=== PATIENT | female | born 1985 | race African-American/Black ===

== ENCOUNTER 2021-11-09 08:25 | Emergency (ER) | payer MEDICAID, OTHER ==
[~2021-11-09] VITALS: Ht 167.6 cm; Wt 87.5 kg
[2021-11-09 09:19] LABS: Basophils # (auto) 0.1 10 ^3/uL (0-0.2); Eosinophils # (auto) 0.1 10 ^3/uL (0-0.8); Eosinophils % (auto) 1.4 % (0.0-7.0); Hematocrit 40.6 % (36.0-46.0); Hemoglobin 13.5 g/dL (12.2-16.2); Lymphocytes # (auto) 1.4 10 ^3/uL (0.4-5.4); Lymphocytes % (auto) 19.1 % (10.0-50.0); Mean Corpuscular Hemoglobin 26.2 pg (28.0-32.0); Mean Corpuscular Hgb Conc. 33.2 g/dL (32.0-36.0); Monocytes # (auto) 0.6 10 ^3/uL (0-1.3); Neutrophils # (auto) 5.2 10 ^3/uL (1.6-8.6); Neutrophils % (auto) 70.5 % (37.0-80.0); Nucleated Red Blood Cells % 0.1 %; Red Blood Cells 5.14 10^6/uL (4.0-5.20); Red Cell Distribution Width 15.3 % (11.8-14.3); White Blood Cell 7.4 10^3/uL (4.4-10.8)
[2021-11-09 09:43] LABS: Calcium 9.1 mg/dL (8.5-10.1); Potassium 3.7 mmol/L (3.5-5.1)
[2021-11-09 09:49] LABS: BUN/Creatinine Ratio 13.2; Bilirubin, Total 0.2 mg/dL (0.2-1.0)
[2021-11-09 10:03] LABS: Urine Bacteria FEW /hpf (None Seen); Urine Blood Negative /uL (Negative); Urine Specific Gravity 1.018 (1.001-1.035); Urine WBC 2 /hpf (0 - 5)
[2021-11-09 11:19] VITALS: BP 121/78
== END 2021-11-09 13:20 | disposition home or self-care (01) ==
LOC: ER 08:25
DX: O26.891 Other specified pregnancy related conditions, first trimester (principal); R25.2 Cramp and spasm; R10.2 Pelvic and perineal pain; Z3A.09 9 weeks gestation of pregnancy
CPT/HCPCS: 36415; 76801; 80053; 81001; 84702; 85025

== ENCOUNTER 2024-08-13 14:46 | Emergency (ER) | payer MEDICAID ==
[~2024-08-13] VITALS: Ht 170.2 cm; Wt 93.6 kg
[2024-08-13 15:08] LABS: Urine Bacteria None Seen /hpf (None Seen)
[2024-08-13 15:20] LABS: Urine Blood 3+ /uL (Negative); Urine Clarity Clear (Clear); Urine Color Light-Yellow (Yellow); Urine Protein, UAD Negative (Negative); Urine Specific Gravity 1.014 (1.001-1.035); Urine Urobilinogen Normal (Negative); Urine WBC 2 /hpf (0 - 5); Urine pH 6.5 (5.0-9.0)
[2024-08-13] MEDS ORDERED: CYCL-837 PO (16:50)
[2024-08-13 17:21] VITALS: BP 97/66; PULSE 74; RESP 14; O2SAT 99
== END 2024-08-13 18:08 | disposition home or self-care (01) ==
LOC: ER 14:46
DX: S16.1XXA Strain of muscle, fascia and tendon at neck level, initial encounter (principal); V49.9XXA Car occupant (driver) (passenger) injured in unspecified traffic accident, initial encounter; Y93.89 Activity, other specified; Y92.488 Other paved roadways as the place of occurrence of the external cause; Y99.8 Other external cause status
CPT/HCPCS: 72040; 81001

== ENCOUNTER 2025-02-09 09:54 | Emergency (ER) | payer MEDICAID ==
[~2025-02-09] VITALS: Ht 167.6 cm; Wt 89.5 kg
[~2025-02-09 09:54] MED LIST: CYCL-837 PO
[2025-02-09 09:59] VITALS: BP 95/65; PULSE 100; RESP 20; TEMP 97.9; O2SAT 96
--- NOTE | 2025-02-09 10:36 | ED.PDOC ---
History of Present Illness HPI Comments 39 y/o F presents with son for c/o nonradiating, mid-abdominal and back pain, nausea, and soft stools production for 1x day, today. Patient reports coming to the ED, due to her and her son developing similar symptoms around the same timeframe and concerns for possible C. Diff. 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 She denies any intolerance to food or liquids, diarrhea, vomiting, urinary symptoms, fever, chills, or other associated symptoms at this time. 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 OPERATOR History Family History Family History: Reviewed,noncontributory to illness Social History Smoker: Non-Smoker Alcohol: Denies ETOH Use Drugs: Denies Drug Use Lives In: Home Constitutional: denies: chills, diaphoresis, fatigue, fever, malaise, sweats, weakness, others EENTM: denies: blurred vision, double vision, ear bleeding, ear discharge, ear drainage, ear pain, ear ringing, eye pain, eye redness, hearing loss, mouth pain, mouth swelling, nasal discharge, nose bleeding, nose congestion, nose pain, photophobia, tearing, throat pain, throat swelling, voice changes, others Respiratory: denies: cough, hemoptysis, orthopnea, SOB at rest, shortness of breath, SOB with excertion, stridor, wheezing, others Cardiovascular: denies: chest pain, dizzy spells, diaphoresis, Dyspnea on exertion, edema, irregular heart beat, left arm pain, lightheadedness, palpitations, PND, syncope, others Gastrointestinal: reports: abdominal pain, nausea, others (loose stools ); denies: abdomen distended, blood streaked bowels, constipated, diarrhea, dysphagia, difficulty swallowing, hematemesis, melena, poor appetite, poor fluid intake, rectal bleeding, rectal pain, vomiting Genitourinary: denies: abnormal vagina bleeding, burning, dyspareunia, dysuria, flank pain, frequency, hematuria, incontinence, pain, , vagina discharge, urgency, others Neurological: denies: dizziness, fainting, headache, left sided numbness, left sided weakness, numbness, paresthesia, pre-existing deficit, right sided numbness, right sided weakness, seizure, speech problems, tingling, tremors, weakness, others Musculoskeletal: reports: back pain; denies: gout, joint pain, joint swelling, muscle pain, muscle stiffness, neck pain, others Integumetry: denies: bruises, change in color, change in hair/nails, dryness, laceration, lesions, lumps, rash, wounds, others Allergic/Immunocompromised: denies: Difficulty Healing, Frequent Infections, Hives, Itching, others Hematologic/Lymphatic: denies: anemia, blood clots, easy bleeding, easy bruising, swollen glands, others Endocrine: denies: excessive hunger, excessive sweating, excessive thirst, excessive urination, flushing, intolerance to cold, intolerance to heat, unexplained weight gain, unexplained weight loss, others Psychiatric: denies: anxiety, bipolar disorder, depression, hopeless, panic disorder, schizophrenia, sleepless, suicidal, others All Other Systems: Reviewed and Negative Physical Exam General Appearance: No Apparent Distress HEENT: Normal ENT Inspection, Pharynx Normal, TMs Normal Neck: Full Range of Motion, Non-Tender, Normal, Normal Inspection Respiratory: Chest Non-Tender, Lungs Clear, No Accessory Muscle Use, No Respir atory Distress, Normal Breath Sounds Cardiovascular: No Edema, No JVD, No Murmur, No Gallop, Normal Peripheral Pulses, Regular Rate/Rhythm Breast Exam: Deferred Gastrointestinal: No Organomegaly, Non Tender, No Pulsatile Mass, Normal Bowel Sounds, Soft Genitalia: Deferred Pelvic: Deferred Rectal: Deferred Extremities: No calf tenderness, Normal capillary refill, Normal inspection, Normal range of motion, Non-tender, No pedal edema Musculoskeletal : Apperance: Normal Neurologic: Alert, tar leveler II-XII nml as Tested, No Motor Deficits, Normal Affect, Normal Mood, No Sensory Deficits Cerebellar Function: Normal Reflexes: Normal Skin: Dry, Normal Color, Warm Lymphatic: No Adenopathy Was a procedure done? Was a procedure done?: No Differential Dx Considerations may include: viral syndrome, spoiled food, , gastritis, gastroenteritis, C. Diff. exposure, among others X-Ray, Labs, Meds, VS Vital Signs Date Time Temp Pulse Resp B/P (MAP) Pulse Ox O2 Delivery O2 Flow Rate FiO2 02/09/25 09:59 97.9 100 20 95/65 (75) 96 97.9 The patient was being discharged with a diagnosis of viral syndrome The patient will return to the emergency department's condition worsens. We tried to re-evaluate the patient before possible discharged but it seems that the patient was eloped from the department's Time of 1ST Reevaluation: 11:00 Reevaluation 1ST: Unchanged Patient Education/Counseling: Diagnosis, Treatment, Prognosis, Need For Follow Up Family Education/Counseling: No Family Present Departure 1 Departure Time of Disposition: 15:02 Impression: Primary Impression: Viral syndrome Disposition: 03 RETIREMENT FACILITY Condition: Fair Critical Care Note Critical Care Time?: No Stability Stability form required: No Heart Score Heart Score: Heart Score Response (Comments) Value History N/A 0 EKG N/A 0 Age N/A 0 Risk Factors N/A 0 Troponin N/A 0 Total 0 I personally scribed for ILA GARDINER MD ([email or web address]) on 02/09/25 at 10:36. Electronically submitted by Dorian Rodriguez ([email or web address]). I personally scribed for ILA GARDINER MD ([email or web address]) on 02/09/25 at 10:51. Electronically submitted by Dorian Rodriguez ([email or web address]). ILA GARDINER MD Feb 09, 2025 10:36
== END 2025-02-09 15:15 | disposition home or self-care (01) ==
LOC: ER 09:54
DX: B34.9 Viral infection, unspecified (principal); Z79.899 Other long term (current) drug therapy; Z98.890 Other specified postprocedural states

== ENCOUNTER 2025-07-11 01:08 | Emergency (ER) | payer MEDICAID ==
[~2025-07-11] VITALS: Ht 167.6 cm; Wt 88.0 kg
[2025-07-11 01:13] VITALS: BP 103/69; RESP 18; TEMP 97.8; O2SAT 98
[2025-07-11 01:16] VITALS: PULSE 67
[2025-07-11] MEDS ORDERED: HYDROcodone-ACET 10/325MG TAB PO ONE (01:45)
[2025-07-11 02:00] LABS: Hematocrit 39.2 % (36.0-46.0); Hemoglobin 13.1 g/dL (12.2-16.2); Mean Corpuscular Hemoglobin 26.4 pg (28.0-32.0); Mean Corpuscular Volume 79.1 fL (80.0-100.0); Nucleated Red Blood Cells % 0.0 %
[2025-07-11 02:19] LABS: Alanine Aminotransferase 10 U/L (7-40); Albumin 3.9 g/dL (3.2-4.8); Alkaline Phosphatase 108 U/L (46-116); Anion Gap 8 (5-15); BUN/Creatinine Ratio 12.8 (10.0-20.0); Blood Urea Nitrogen 10 mg/dL (9-23); Calcium 9.1 mg/dL (8.7-10.4); Carbon Dioxide 25 mmol/L (20-31); Chloride 107 mmol/L (98-107); Glucose 102 mg/dL (74-106); Magnesium 1.8 mg/dL (1.6-2.6); Potassium 3.8 mmol/L (3.5-5.1); Sodium 140 mmol/L (136-145); Total Protein 6.9 g/dL (5.7-8.2)
[2025-07-11 02:20] LABS: Bilirubin, Total 0.3 mg/dL (0.2-1.0)
[2025-07-11] MEDS ORDERED: IBUP-1455 PO (02:51)
[2025-07-11] MEDS ORDERED: ACET500T58 PO (02:51)
--- NOTE | 2025-07-11 02:51 | ED.PDOC ---
History of Present Illness HPI Comments This patient is a pleasant but morbidly obese 39-year-old female who arrives to the ED today with complaints of generalized chest pain concerns, bilateral upper extremity and bilateral lower extremity numbness and tingling as well as low back pain issues. Patient states the symptoms came on a few days ago and has been relatively unrelenting and have even worsened today prompting her to come to the facility. Patient denies any history of cardiac or low back concerns. Patient denies any fever nausea or vomiting. Vital signs were stable at arrival. 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 AUTOMOTIVE LIGHT MECHANIC History Family History Family History: Reviewed,noncontributory to illness Social History Smoker: Non-Smoker Alcohol: Denies ETOH Use Drugs: Denies Drug Use Lives In: Home Constitutional: reports: weakness; denies: chills, diaphoresis, fatigue, fever, malaise, sweats, others EENTM: denies: blurred vision, double vision, ear bleeding, ear discharge, ear drainage, ear pain, ear ringing, eye pain, eye redness, hearing loss, mouth pain, mouth swelling, nasal discharge, nose bleeding, nose congestion, nose pain, photophobia, tearing, throat pain, throat swelling, voice changes, others Respiratory: denies: cough, hemoptysis, orthopnea, SOB at rest, shortness of breath, SOB with excertion, stridor, wheezing, others Cardiovascular: reports: chest pain; denies: dizzy spells, diaphoresis, Dyspnea on exertion, edema, irregular heart beat, left arm pain, lightheadedness, palpitations, PND, syncope, others Gastrointestinal: denies: abdomen distended, abdominal pain, blood streaked bowels, constipated, diarrhea, dysphagia, difficulty swallowing, hematemesis, melena, nausea, poor appetite, poor fluid intake, rectal bleeding, rectal pain, vomiting, others Genitourinary: denies: abnormal vagina bleeding, burning, dyspareunia, dysuria, flank pain, frequency, hematuria, incontinence, pain, , vagina discharge, urgency, others Neurological: denies: dizziness, fainting, headache, left sided numbness, left sided weakness, numbness, paresthesia, pre-existing deficit, right sided numbness, right sided weakness, seizure, speech problems, tingling, tremors, wea kness, others Musculoskeletal: reports: back pain, others (Global pain with upper and lower extremity tingling and numbness.); denies: gout, joint pain, joint swelling, muscle pain, muscle stiffness, neck pain Integumetry: denies: bruises, change in color, change in hair/nails, dryness, laceration, lesions, lumps, rash, wounds, others Allergic/Immunocompromised: denies: Difficulty Healing, Frequent Infections, Hives, Itching, others Hematologic/Lymphatic: denies: anemia, blood clots, easy bleeding, easy b ruising, swollen glands, others Endocrine: denies: excessive hunger, excessive sweating, excessive thirst, excessive urination, flushing, intolerance to cold, intolerance to heat, unexplained weight gain, unexplained weight loss, others Psychiatric: denies: anxiety, bipolar disorder, depression, hopeless, panic disorder, schizophrenia, sleepless, suicidal, others Physical Exam General Appearance: Moderate Distress ([id number] distress due to patient's complaints.), Normal HEENT: Normal ENT Inspection, Pharynx Normal, TMs Normal Neck: Full Range of Motion, Non-Tender, Normal, Normal Inspection Respiratory: Chest Non-Tender, Lungs Clear, No Accessory Muscle Use, No Respiratory Distress, Normal Breath Sounds Cardiovascular: No Edema, No JVD, No Murmur, No Gallop, Normal Peripheral Pulses, Regular Rate/Rhythm Breast Exam: Deferred Gastrointestinal: No Organomegaly, Non Tender, No Pulsatile Mass, Normal Bowel Sounds, Soft Genitalia: Deferred Pelvic: Deferred Rectal: Deferred Extremities: Other (Unremarkable upper and lower bilateral extremity evaluation. No signs of trauma. Strength is equal.) Musculoskeletal : Location: Bilateral Extremity Location: Back (Diffuse bilateral superior lumbar tenderness to palpation throughout. Difficult to assess due to body habitus. No step-offs noted. Patient denies any saddle paresthesia. Distal neurovascularly intact.) Apperance: Normal Neurologic: Alert, No Motor Deficits, Normal Affect, Normal Mood, No Sensory Deficits Cerebellar Function: NOT DONE Reflexes: NOT DONE Skin: Dry, Normal Color, Warm Lymphatic: No Adenopathy Was a procedure done? Was a procedure done?: No Differential Dx Considerations may include: Acute coronary syndrome, electrolyte abnormality, sepsis, urinary tract infection, degenerative disc disease of the lumbar spine X-Ray, Labs, Meds, VS Vital Signs Date Time Temp Pulse Resp B/P (MAP) Pulse Ox O2 Delivery O2 Flow Rate FiO2 07/11/25 01:16 67 07/11/25 01:13 97.8 75 18 103/69 98 97.8 Lab Test 07/11/25 01:40 Range/Units White Blood Count 7.2 4.4-10.8 10^3/uL Red Blood Count 4.95 4.0-5.20 10^6/uL Hemoglobin 13.1 12.2-16.2 g/dL Hematocrit 39.2 36.0-46.0 % Mean Corpuscular Volume 79.1 L 80.0-100.0 fL Mean Corpuscular Hemoglobin 26.4 L 28.0-32.0 pg Mean Corpuscular Hemoglobin Concent 33.4 32.0-36.0 g/dL Red Cell Distribution Width 14.7 H 11.8-14.3 % Platelet Count 290 140-450 10^3/uL Mean Platelet Volume 8.3 6.9-10.8 fL Neutrophils (%) (Auto) 57.9 37.0-80.0 % Lymphocytes (%) (Auto) 32.1 10.0-50.0 % Monocytes (%) (Auto) 6.3 0.0-12.0 % Eosinophils (%) (Auto) 2.7 0.0-7.0 % Basophils (%) (Auto) 1.0 0.0-2.0 % Neutrophils # (Auto) 4.2 1.6-8.6 10 ^3/uL Lymphocytes # (Auto) 2.3 0.4-5.4 10 ^3/uL Monocytes # (Auto) 0.5 0-1.3 10 ^3/uL Eosinophils # (Auto) 0.2 0-0.8 10 ^3/uL Basophils # (Auto) 0.1 0-0.2 10 ^3/uL Nucleated Red Blood Cells 0.0 % Sodium Level 140 136-145 mmol/L Potassium Level 3.8 3.5-5.1 mmol/L Chloride Level 107 98-107 mmol/L Carbon Dioxide Level 25 20-31 mmol/L Anion Gap 8 5-15 Blood Urea Nitrogen 10 9-23 mg/dL Creatinine 0.78 0.550-1.02 mg/dL Glomerular Filtration Rate Calc 99 >90 mL/min BUN/Creatinine Ratio 12.8 10.0-20.0 Serum Glucose 102 74-106 mg/dL Calcium Level 9.1 8.7-10.4 mg/dL Magnesium Level 1.8 1.6-2.6 mg/dL Total Bilirubin 0.3 0.2-1.0 mg/dL Aspartate Amino Transferase (AST) 13 13-40 U/L Alanine Aminotransferase (ALT) 10 7-40 U/L Alkaline Phosphatase 108 46-116 U/L Troponin I High Sensitivity < 3 L </=34 ng/L Total Protein 6.9 5.7-8.2 g/dL Albumin 3.9 3.2-4.8 g/dL Thyroid Stimulating Hormone (TSH) 2.81 0.55-4.78 uIU/mL X-Ray, Labs, Meds, VS Comment Several studies were pending at time of this note. Laboratories that had returned were unremarkable for any systemic concerns. EKG revealed a sinus rhythm with a rate of 67. TX interval 178 and QT interval of three seven. Normal EKG. Patient states that she has had some anxiety recently and that in turn could explain the culprit for the patient's complaints. Patient care will be transferred to Dr. Lopez for evaluation of laboratories and imaging when returned. Time of 1ST Reevaluation: 02:47 Reevaluation 1ST: Improved Consultation: PCP Patient Education/Counseling: Diagnosis, Treatment Family Education/Counseling: Diagnosis, Treatment SEPSIS Sepsis Screen Date sepsis recognized/suspect: Jul 11, 2025 Time Sepsis recognized/suspect: 012 Recent Procedure: No On Antibiotic Therapy: No Respiratory Rate >20: No Heart Rate >90: No Temp<36 C (96.8 F) or >38.3 C: No SBP <90 or MAP <65 mmHG: No New Acute Mental Status Change: No Is the patient on CPAP, BIPAP,: No Physician Orders Urinalysis (07/11/25 01:31) Electrocardigram (07/11/25 01:31) Lumbar Spine 3 View (07/11/25 01:31) Vital Signs Date Time Temp Pulse Resp B/P (MAP) Pulse Ox O2 Delivery O2 Flow Rate FiO2 07/11/25 01:16 67 07/11/25 01:13 97.8 75 18 103/69 98 97.8 Laboratory Tests Test 07/11/25 01:40 White Blood Count 7.2 10^3/uL (4.4-10.8) Departure 1 Departure Time of Disposition: 02:49 Impression: Primary Impression: Anxiety Additional Impressions: Chest pain Low back pain Disposition: HOME / SELF CARE / HOMELESS Condition: Stable Additional Instructions: Advised patient utilize medication as needed and additionally, patient should follow up with the primary care provider for mental health referral and evaluation as that may aid her during this stressful time. e-Prescriptions Acetaminophen (Acetaminophen) 500 Mg Tab 500 MG PO Q4HP PRN, #30 TAB Prov: MALKA MOE PAC 07/11/25 Ibuprofen Micronized (Ibuprofen) 800 Mg Tab 800 MG PO Q8HP PRN, #20 TAB Prov: MALKA MOE PAC 07/11/25 Discharged With: Self, Friend Critical Care Note Critical Care Time?: No Stability Stability form required: No Heart Score Heart Score: Heart Score Response (Comments) Value History Slightly Suspicious 0 EKG Normal 0 Age <45 0 Risk Factors No known risk factors 0 Troponin Normal limit 0 Total 0 MALKA MOE PAC Jul 11, 2025 02:51
--- NOTE | 2025-07-11 02:54 | ECG ---
[facility] Test Date: 2025-07-11 Test Time: 01:16:02 Pat Name: DARREN CAMEJO Department: [facility] ED Patient ID: [id number] Room: Gender: F E Commerce Director: JOSH : 1985 Requested By: MALKA MOE Order Number: [id number] Reading MD: Measurements Intervals [place] Rate: 67 P: 53 UT: 178 QRS: 60 QRSD: 81 T: 56 QT: 387 QTc: 409 Interpretive Statements Sinus rhythm Please click the below link to view image of tracing.
== END 2025-07-11 04:13 | disposition left against medical advice (07) ==
LOC: ER 01:08
DX: F41.9 Anxiety disorder, unspecified (principal); R07.89 Other chest pain; M54.50 Low back pain, unspecified; Z79.899 Other long term (current) drug therapy
CPT/HCPCS: 36415; 80053; 83735; 84443; 84484; 85025; 93005